=== PATIENT | male | born 1960 | race Caucasian/White ===

== ENCOUNTER 2018-02-18 05:02 | Emergency (ER) | payer OTHER ==
[~2018-02-18] VITALS: Ht 185.4 cm; Wt 110.0 kg
[~2018-02-18 05:02] MED LIST: ATOR40TA78 PO; CITA20TA6 PO; CLON0.1T PO; DOXA2TAB9 PO; LISI-167 PO; LOSA50TA7 PO; PANT20TA2 PO; PRAV40TA2 PO; TAMS-11 PO
[2018-02-18 05:04] VITALS: BP 139/92
[2018-02-18] MEDS ORDERED: SODIUM CHLORIDE 0.9% 1,000ML IVBOLUS ONE (06:00)
[2018-02-18] MEDS ORDERED: DILTIAZEM 5 MG/ML, 5ML IVPush ONE (06:00)
== END 2018-02-18 06:02 | disposition home or self-care (01) ==
LOC: ED 06:00
DX: S50.862A Insect bite (nonvenomous) of left forearm, initial encounter (principal); I10 Essential (primary) hypertension; F41.1 Generalized anxiety disorder; W57.XXXA Bitten or stung by nonvenomous insect and other nonvenomous arthropods, initial encounter; Y93.89 Activity, other specified; Y99.8 Other external cause status; Y92.009 Unspecified place in unspecified non-institutional (private) residence as the place of occurrence of the external cause
CPT/HCPCS: 99283

== ENCOUNTER 2018-02-20 04:51 | Emergency (ER) | payer OTHER ==
[~2018-02-20] VITALS: Ht 182.9 cm; Wt 115.5 kg
[2018-02-20 04:53] VITALS: BP 123/84
[2018-02-20] MEDS ORDERED: LIDOCAINE-MPF 1%, 5ML ONE (05:11)
[2018-02-20] MEDS ORDERED: DIPH,PERTUSS(ACELL),TET VAC/PF 0.5 ML IM-VACC ONE ×2 (05:29→05:30)
[2018-02-20] MEDS ORDERED: LIDOCAINE 2%, 20ML SQ ONE (05:30)
== END 2018-02-20 05:46 | disposition home or self-care (01) ==
LOC: ED 05:26
DX: L02.414 Cutaneous abscess of left upper limb (principal)
CPT/HCPCS: 10060; 90471; 90715; 99283

== ENCOUNTER 2018-02-22 04:36 | Emergency (ER) | payer OTHER ==
[~2018-02-22] VITALS: Ht 182.9 cm; Wt 116.1 kg
[~2018-02-22 04:36] MED LIST changes: -CLON0.1T PO; +CLON0.1T22 PO
[2018-02-22 04:38] VITALS: BP 136/83
--- NOTE | 2018-02-22 05:00 | NUR ---
suture removal kit and packing placed at bedside. erp at bedside for l forearm wound check.
== END 2018-02-22 05:22 | disposition home or self-care (01) ==
LOC: ED 05:07
DX: L02.414 Cutaneous abscess of left upper limb (principal); I10 Essential (primary) hypertension; F41.9 Anxiety disorder, unspecified
CPT/HCPCS: 99281; 99282; 99283

== ENCOUNTER 2018-02-24 04:12 | Emergency (ER) | payer OTHER ==
[~2018-02-24] VITALS: Ht 182.9 cm; Wt 112.3 kg
[~2018-02-24 04:12] MED LIST changes: +CLON0.1T PO; -CLON0.1T22 PO
[2018-02-24 04:15] VITALS: BP 148/89
== END 2018-02-24 05:21 | disposition home or self-care (01) ==
LOC: ED 05:02
DX: L02.414 Cutaneous abscess of left upper limb (principal); I10 Essential (primary) hypertension
CPT/HCPCS: 99283

== ENCOUNTER 2018-02-26 03:57 | Emergency (ER) | payer OTHER ==
[~2018-02-26] VITALS: Ht 182.9 cm; Wt 116.2 kg
[2018-02-26 03:59] VITALS: BP 133/82
== END 2018-02-26 04:39 | disposition home or self-care (01) ==
LOC: ED 04:30
DX: Z48.01 Encounter for change or removal of surgical wound dressing (principal); I10 Essential (primary) hypertension
CPT/HCPCS: 99281

== ENCOUNTER 2018-05-11 14:37 | Inpatient (IN) | payer OTHER ==
[~2018-05-11] VITALS: Ht 182.9 cm; Wt 107.1 kg
[~2018-05-11 14:37] MED LIST changes: -CLON0.1T PO; +CLON0.1T22 PO; +LOSA50TA14 PO; -LOSA50TA7 PO
[2018-05-11] MEDS ORDERED: SODIUM CHLORIDE 0.9% 1,000 ML IV ONE (15:07)
[2018-05-11] MEDS ORDERED: KETOROLAC 30 MG/1 ML ONE (15:13)
[2018-05-11] MEDS ORDERED: SULFAMETH./TRIMETHOPRIM DS 800MG/160MG TABLET ONE (15:13)
[2018-05-11 15:20] LABS: BASOPHILS # (AUTO) 0.02 x10^3/uL (0-0.1); BASOPHILS % (AUTO) 0 % (0-1); EOSINOPHILS # (AUTO) 0.13 x10^3/uL (0-0.4); EOSINOPHILS % (AUTO) 1 % (1-7); LYMPHOCYTES # (AUTO) 1.66 x10^3/uL (1-3.4); LYMPHOCYTES % (AUTO) 16 % (22-44); MD NO; MEAN CORPUSCULAR HEMOGLOBIN 29.9 pg (27.5-34.5); MEAN CORPUSCULAR HGB CONC 33.8 g/dL (33.2-36.2); MEAN CORPUSCULAR VOLUME 88.3 fL (81-97); MEAN PLATELET VOLUME 7.6 fL (7.4-10.4); MONOCYTES # (AUTO) 0.88 x10^3/uL (0.2-0.8); MONOCYTES % (AUTO) 9 % (2-9); NEUTROPHILS # (AUTO) 7.62 x10^3/uL (1.8-6.8); NEUTROPHILS % (AUTO) 74 % (42-75); PLATELET COUNT 222 x10^3/uL (130-400); RED BLOOD COUNT 4.54 x10^6/uL (4.38-5.82); RED CELL DISTRIBUTION WIDTH 12.7 % (9.4-14.8)
[2018-05-11] MEDS ORDERED: VANCOMYCIN 2,300 MG in SODIUM CHLORIDE 0.9% 500 ML IV ONE (15:30)
[2018-05-11] MEDS ORDERED: KETOROLAC 60 MG/2 ML IM ONE (15:30)
[2018-05-11] MEDS ORDERED: SULFAMETH./TRIMETHOPRIM DS 800MG/160MG TABLET PO ONE (15:30)
[2018-05-11] MEDS ORDERED: SODIUM CHLORIDE FLUSH 10ML SYR IVF ONE (15:30)
[2018-05-11] MEDS ORDERED: KETOROLAC 30 MG/1 ML IVPush ONE (15:30)
[2018-05-11] MEDS ORDERED: VANCOMYCIN PER PHARMACY IV ONE (15:30)
[2018-05-11 15:31] LABS: ALBUMIN 3.8 g/dL (3.4-5.0); CALCIUM 9.2 mg/dL (8.5-10.1); CHLORIDE 104 mmol/L (98-107)
[2018-05-11 15:38] LABS: ALANINE AMINOTRANSFERASE 36 U/L (12-78); ALKALINE PHOSPHATASE 97 U/L (45-117); ANION GAP 7 mmol/L (5-15); BILIRUBIN,TOTAL 0.7 mg/dL (0.2-1.0); CREATININE 0.91 mg/dL (0.7-1.3); TOTAL PROTEIN 7.1 g/dL (6.4-8.2)
--- NOTE | 2018-05-11 16:00 | NUR ---
pt to ct now. in room.
[2018-05-11] MEDS ORDERED: OMNIPAQUE 350 MG/ML, 100ML BOTTLE ONE (16:10)
[2018-05-11] MEDS ORDERED: HYDROmorphone 1 MG/ML, 1ML ONE ×2 (16:23→18:22)
[2018-05-11] MEDS: HYDROmorphone 1 MG/ML, 1ML IVPush PRN ×2 (16:25→18:24)
[2018-05-11 16:51] LABS: HEMOGLOBIN A1C 5.6 % (4.2-6.3)
[2018-05-11] MEDS ORDERED: AMPICILLIN/SULBACTAM 3 GM in SODIUM CHLORIDE 0.9% 100 ML IV ONE (17:00)
--- NOTE | 2018-05-11 17:09 | NUR ---
THROUGHPUT RN: Spoke with Lelia at [facility], page out to Dr. Newton for direct admission.
--- NOTE | 2018-05-11 17:16 | NUR ---
Per Lelia [facility] patient has the option to stay if it is his preference to be admitted at this hospital. Patient requests to be admitted at [facility], Dr. Cox updated.
[2018-05-11] MEDS ORDERED: hydrALAzine 20 MG/ML, 1ML IVPush PRN (18:00)
[2018-05-11] MEDS ORDERED: BISACODYL 10 MG SUPP PR PRN (18:00)
[2018-05-11] MEDS ORDERED: ACETAMINOPHEN 325 MG TABLET PO PRN (18:00)
[2018-05-11] MEDS ORDERED: VANCOMYCIN PER PHARMACY MC PRN (18:00)
[2018-05-11] MEDS ORDERED: BACLOFEN 10 MG TABLET PO PRN (18:00)
[2018-05-11] MEDS ORDERED: LABETALOL 5MG/ML, 20ML IVPush PRN (18:00)
[2018-05-11] MEDS ORDERED: ENALAPRILAT 1.25 MG/ML, 2ML IVPush PRN (18:00)
[2018-05-11] MEDS ORDERED: GABAPENTIN 300 MG CAPSULE PO PRN (18:00)
[2018-05-11 19:30] VITALS: BP 112/62
[2018-05-11] MEDS ORDERED: PHARMACOKINETIC MONITORING MC PRN (20:00)
[2018-05-11] MEDS ORDERED: PHARMACOKINETIC CONSULTATION MC ONE (20:00)
[2018-05-11] MEDS: SODIUM CHLORIDE 0.9% 1,000 ML IV SCH (20:30)
[2018-05-11] MEDS: LOSARTAN 50MG TABLET PO SCH (20:31)
[2018-05-11] MEDS: AMPICILLIN/SULBACTAM 3 GM in SODIUM CHLORIDE 0.9% 100 ML IV SCH (20:31)
[2018-05-11] MEDS: PANTOPRAZOLE 20MG TABLET PO SCH (20:31)
[2018-05-11] MEDS: ATORVASTATIN 40 MG TABLET PO SCH (20:31)
[2018-05-11] MEDS: OXYcodone IR 5MG TABLET PO PRN (22:43)
[2018-05-12] MEDS: AMPICILLIN/SULBACTAM 3 GM in SODIUM CHLORIDE 0.9% 100 ML IV SCH ×4 (01:52→22:05)
[2018-05-12] MEDS: morphine SULFATE 10 MG/ML, 1ML IVPush PRN ×5 (02:27→22:04)
[2018-05-12] MEDS: OXYcodone IR 5MG TABLET PO PRN ×4 (02:49→22:04)
[2018-05-12 03:48] VITALS: BP 127/83
[2018-05-12] MEDS: VANCOMYCIN 2,000 MG in SODIUM CHLORIDE 0.9% 500 ML IV SCH ×2 (04:05→15:46)
[2018-05-12 04:52] LABS: BASOPHILS # (AUTO) 0.02 x10^3/uL (0-0.1); BASOPHILS % (AUTO) 0 % (0-1); EOSINOPHILS # (AUTO) 0.21 x10^3/uL (0-0.4); EOSINOPHILS % (AUTO) 3 % (1-7); LYMPHOCYTES # (AUTO) 1.69 x10^3/uL (1-3.4); LYMPHOCYTES % (AUTO) 20 % (22-44); MD NO; MEAN CORPUSCULAR HEMOGLOBIN 29.7 pg (27.5-34.5); MEAN CORPUSCULAR HGB CONC 33.9 g/dL (33.2-36.2); MEAN CORPUSCULAR VOLUME 87.8 fL (81-97); MEAN PLATELET VOLUME 7.9 fL (7.4-10.4); MONOCYTES # (AUTO) 0.84 x10^3/uL (0.2-0.8); MONOCYTES % (AUTO) 10 % (2-9); NEUTROPHILS % (AUTO) 67 % (42-75); PLATELET COUNT 194 x10^3/uL (130-400); RED BLOOD COUNT 4.07 x10^6/uL (4.38-5.82); RED CELL DISTRIBUTION WIDTH 12.9 % (9.4-14.8)
[2018-05-12 05:03] LABS: CALCIUM 8.2 mg/dL (8.5-10.1); CHLORIDE 108 mmol/L (98-107)
[2018-05-12 05:09] LABS: ALANINE AMINOTRANSFERASE 28 U/L (12-78); ALBUMIN 3.1 g/dL (3.4-5.0); ALKALINE PHOSPHATASE 85 U/L (45-117); ANION GAP 5 mmol/L (5-15); BILIRUBIN,TOTAL 0.8 mg/dL (0.2-1.0); CHOL/HDL RATIO 2.4; CHOLESTEROL, TOTAL 123 mg/dL (140-239); CREATININE 0.83 mg/dL (0.7-1.3); HDL CHOL % 42 % (26-37); HDL CHOLESTEROL (DIRECT) 52 mg/dL (40-60); LDL CHOLESTEROL,CALCULATED 47 mg/dL (54-169); LDL/HDL RATIO 0.9 (0.5-3.0); TOTAL PROTEIN 6.1 g/dL (6.4-8.2); TRIGLYCERIDES 119 mg/dL (50-200); VLDL CHOLESTEROL 24 mg/dL (0-25)
[2018-05-12] MEDS: SODIUM CHLORIDE 0.9% 1,000 ML IV SCH ×2 (06:10→14:15)
[2018-05-12 07:40] VITALS: BP 137/92
[2018-05-12] MEDS: TAMSULOSIN 0.4 MG CAP.ER.24H PO SCH (08:47)
[2018-05-12] MEDS: LACTOBACILLUS CHEW TABLET PO SCH ×3 (08:47→22:03)
[2018-05-12] MEDS: DOCUSATE 100 MG CAPSULE PO PRN ×2 (10:12→22:24)
[2018-05-12] MEDS: POLYETHYLENE GLYCOL 17 GM PACKET PO PRN (10:13)
[2018-05-12] MEDS: ACETAMINOPHEN 325 MG TABLET PO PRN ×2 (10:13→18:15)
[2018-05-12 14:04] VITALS: BP 133/77
[2018-05-12 19:09] VITALS: BP 125/73
[2018-05-12] MEDS: PANTOPRAZOLE 20MG TABLET PO SCH (22:03)
[2018-05-12] MEDS: LOSARTAN 50MG TABLET PO SCH (22:03)
[2018-05-12] MEDS: ATORVASTATIN 40 MG TABLET PO SCH (22:03)
[2018-05-13] MEDS: ACETAMINOPHEN 325 MG TABLET PO PRN ×3 (01:47→23:05)
[2018-05-13] MEDS: OXYcodone IR 5MG TABLET PO PRN ×5 (01:47→23:06)
[2018-05-13 01:56] VITALS: BP 131/74
[2018-05-13] MEDS: AMPICILLIN/SULBACTAM 3 GM in SODIUM CHLORIDE 0.9% 100 ML IV SCH ×4 (03:34→23:07)
[2018-05-13] MEDS: SODIUM CHLORIDE 0.9% 1,000 ML IV SCH ×2 (03:34→16:39)
[2018-05-13] MEDS: VANCOMYCIN 2,000 MG in SODIUM CHLORIDE 0.9% 500 ML IV SCH (04:30)
[2018-05-13] MEDS: morphine SULFATE 10 MG/ML, 1ML IVPush PRN ×5 (05:05→23:47)
[2018-05-13] MEDS: LACTOBACILLUS CHEW TABLET PO SCH ×3 (08:08→19:46)
[2018-05-13] MEDS: TAMSULOSIN 0.4 MG CAP.ER.24H PO SCH (08:08)
[2018-05-13 08:26] VITALS: BP 147/85
[2018-05-13 08:38] VITALS: BP 147/85
[2018-05-13] MEDS ORDERED: OXYcodone IR 5MG TABLET PO PRN (10:00)
[2018-05-13] MEDS ORDERED: VANCOMYCIN 2,000 MG in SODIUM CHLORIDE 0.9% 500 ML IV SCH (14:00)
[2018-05-13 14:55] VITALS: BP 140/87
[2018-05-13] MEDS: DOCUSATE 100 MG CAPSULE PO PRN (16:38)
[2018-05-13 19:30] VITALS: BP 154/98
[2018-05-13] MEDS: LOSARTAN 50MG TABLET PO SCH (19:46)
[2018-05-13] MEDS: PANTOPRAZOLE 20MG TABLET PO SCH (19:46)
[2018-05-13] MEDS: ATORVASTATIN 40 MG TABLET PO SCH (19:46)
[2018-05-14 02:11] VITALS: BP 133/78
[2018-05-14] MEDS: OXYcodone IR 5MG TABLET PO PRN ×5 (02:59→20:40)
[2018-05-14] MEDS: SODIUM CHLORIDE 0.9% 1,000 ML IV SCH (03:03)
[2018-05-14] MEDS: AMPICILLIN/SULBACTAM 3 GM in SODIUM CHLORIDE 0.9% 100 ML IV SCH (04:46)
[2018-05-14 07:20] VITALS: BP 146/100
[2018-05-14] MEDS: TAMSULOSIN 0.4 MG CAP.ER.24H PO SCH (08:22)
[2018-05-14] MEDS: AMOXICILLIN/CLAV 875-125MG TABLET PO SCH ×2 (08:22→20:31)
[2018-05-14] MEDS: LACTOBACILLUS CHEW TABLET PO SCH ×3 (08:22→20:32)
[2018-05-14] MEDS: ACETAMINOPHEN 325 MG TABLET PO PRN (12:39)
[2018-05-14 14:18] VITALS: BP 144/82
[2018-05-14] MEDS: DOCUSATE 100 MG CAPSULE PO PRN (15:28)
[2018-05-14] MEDS: POLYETHYLENE GLYCOL 17 GM PACKET PO PRN (15:28)
[2018-05-14 19:34] VITALS: BP 133/86
[2018-05-14] MEDS: ATORVASTATIN 40 MG TABLET PO SCH (20:31)
[2018-05-14] MEDS: PANTOPRAZOLE 20MG TABLET PO SCH (20:32)
[2018-05-14] MEDS: LOSARTAN 50MG TABLET PO SCH (20:32)
[2018-05-15 02:12] VITALS: BP 137/90
[2018-05-15] MEDS: OXYcodone IR 5MG TABLET PO PRN ×2 (03:47→08:51)
[2018-05-15] MEDS: ACETAMINOPHEN 325 MG TABLET PO PRN ×2 (03:47→13:06)
[2018-05-15] MEDS: SODIUM CHLORIDE 0.9% 1,000 ML IV SCH ×2 (03:49→08:52)
[2018-05-15 08:00] VITALS: BP 143/94
[2018-05-15] MEDS: LACTOBACILLUS CHEW TABLET PO SCH (08:51)
[2018-05-15] MEDS: AMOXICILLIN/CLAV 875-125MG TABLET PO SCH (08:51)
[2018-05-15] MEDS: TAMSULOSIN 0.4 MG CAP.ER.24H PO SCH (08:51)
[2018-05-15] MEDS ORDERED: AMOX1TAB12 PO (11:03)
[2018-05-15] MEDS ORDERED: ACID1TAB7 PO (11:03)
[2018-05-15] MEDS ORDERED: ACET325T14 PO (11:03)
[2018-05-15 13:25] VITALS: BP 136/88
== END 2018-05-15 14:35 | disposition home or self-care (01) | DRG 872 ==
LOC: ED 14:55 → EDIP 16:39 → 3NW 19:32 → DCLOUNGE 05-15 14:19
PROVIDERS: ADMIT Hospitalist; ATTEND Hospitalist
DX: A41.9 Sepsis, unspecified organism (principal); L03.317 Cellulitis of buttock; E66.9 Obesity, unspecified; Z68.32 Body mass index [BMI] 32.0-32.9, adult; E78.00 Pure hypercholesterolemia, unspecified; E78.5 Hyperlipidemia, unspecified; G47.30 Sleep apnea, unspecified; G89.29 Other chronic pain; I10 Essential (primary) hypertension; K21.9 Gastro-esophageal reflux disease without esophagitis; L02.92 Furuncle, unspecified; Z88.0 Allergy status to penicillin
CPT/HCPCS: 36415; 72193; 80053; 80061; 80202; 83036; 83605; 84443; 85025; 87040; 87070; 87077; 87186; 87205; 96365; 96366; 96375; G0378; J0295; J1170; J1885; J3370; Q9967; J2270; J7030; J7040